=== PATIENT | female | born 1960 | race Caucasian/White ===

== ENCOUNTER 2016-10-06 11:18 | Emergency (ER) | payer MEDICARE ==
[2015-10-25 18:32] VITALS: BMI 32.3
[~2016-10-06 11:18] MED LIST: CHLORPROMAZINE200 MG PO; DOXYCYCLINE HY100 M2 PO; HYDROCODON-ACE1 EAC7 PO; K-TAB10 MEQ PO; KLONOPIN1 MG PO; LEVAQUIN500 MG PO; LYRICA150 MG; LYRICA150 MG PO; MEDROL DOSE PACK4 MG PO; NEXIUM40 MG PO; PHENERGAN25 M1 PO; REMERON45 MG PO; SEROQUEL300 MG PO; SYNTHROID50 MCG PO; TRILEPTAL300 MG PO
[2016-10-06 12:16] LABS: BASOPHILS 0.5 % (0-2); EOSINOPHILS 2.5 % (0-7); HEMATOCRIT 42.8 % (36.0-48.0); HEMOGLOBIN 14.1 g/dL (12-16); LYMPHOCYTES 31.7 % (15-50); MCH 33.1 pg (26.0-34.0); MCHC 32.9 g/dL (31.0-37.0); MCV 100.5 fL (80.0-100.0); MEAN PLATELET VOLUME 11.7 fL (7.4-10.4); MONOCYTES 8.5 % (2-11); NEUTROPHILS 56.8 % (40-80); PLATELET COUNT 155 10x3/uL (130-400); RBC 4.26 10x6/uL (4.00-5.40); RDW 13.3 % (11.5-14.5); WBC 6.4 10x3/uL (4.8-10.8)
[2016-10-06 12:34] LABS: ALBUMIN 3.2 g/dL (3.4-5.0); ANION GAP 11.7 mmol/L (8-16); BILIRUBIN - TOTAL 0.3 mg/dL (0.2-1.3); CALCIUM 8.8 mg/dL (8.5-10.1); CARBON DIOXIDE 26.4 mmol/L (21.0-32.0); CREATININE - SERUM 1.1 mg/dL (0.6-1.3); POTASSIUM - SERUM 4.1 mmol/L (3.5-5.1); PROTEIN - SERUM 7.6 g/dL (6.4-8.2)
[2016-10-06 13:29] LABS: APPEARANCE HAZY (CLEAR); BACTERIA MODERATE /hpf (NONE SEEN); BILIRUBIN NEGATIVE (NEGATIVE); COLOR YELLOW (YELLOW); GLUCOSE NEGATIVE (NEGATIVE); KETONE NEGATIVE (NEGATIVE); LEUKOCYTE ESTERASE 2+ (NEGATIVE); MUCUS <1+ /lpf (NONE SEEN); NITRITE NEGATIVE (NEGATIVE); PROTEIN NEGATIVE (NEGATIVE); RED CELLS - URINE OCC /hpf (0-5); SPECIFIC GRAVITY 1.005 (1.005-1.020); UROBILINOGEN NORMAL (NORMAL); WHITE CELLS - URINE 25-50 /hpf (0-5)
== END 2016-10-06 14:10 | disposition home or self-care (01) ==
LOC: D.ER 11:18
PROVIDERS: Emergency Medicine
DX: R60.9 Edema, unspecified (principal); L03.90 Cellulitis, unspecified; F17.200 Nicotine dependence, unspecified, uncomplicated; J44.9 Chronic obstructive pulmonary disease, unspecified; B19.10 Unspecified viral hepatitis B without hepatic coma; B19.20 Unspecified viral hepatitis C without hepatic coma

== ENCOUNTER → 2018-06-30 06:43 | Day surgery (SDC) | payer MEDICARE ==
[~2018-06-30] VITALS: Ht 167.6 cm; Wt 85.9 kg
--- NOTE | ~2018-06-30 | OP ---
PATIENT NAME: AILYN GUNN MEDICAL RECORD: [id number] :60 LOCATION:[facility] ADMISSION DATE: SURGEON: CAROLANN GARZA DO DATE OF OPERATION: 06/30/2018 PROCEDURE: Colonoscopy with polypectomy and biopsies. INDICATIONS FOR PROCEDURE: Chronic constipation, hematochezia, generalized abdominal pain. SCOPE: [employer] video pediatric colonoscope. MEDICATIONS: Propofol 820 mg IV per anesthesia. WITHDRAWAL TIME: 30 minutes. ESTIMATED BLOOD LOSS: Minimal. COMPLICATIONS: None. FINDINGS: Informed consent was given. The patient was made comfortable with the above medication. After reaching an adequate level of sedation by slow IV push, the patient was placed on her left side. A digital rectal examination was performed and it was normal. The endoscope was then advanced under direct visualization through the rectum to the cecum, confirmed by the presence of the appendiceal orifice and ileocecal valve. The endoscope was slowly withdrawn, the mucosa was carefully examined. The prep quality was fair in 95% of the colon, but poor in approximately 5% with some solid stool that limited some visualization of mucosa. There were multiple small benign appearing polyps visualized on today's examination. They ranged in size from 3-5 mm in diameter. They were removed using hot forceps. One of these polyps were located in the ascending colon. Two were located in the transverse colon, two were located in the descending colon. Again, all these polyps were removed with hot forceps. In the distal ascending colon at 75 cm, there was a large mixed type polyp with concerning features for high-grade dysplasia or adenocarcinoma. The polyp itself was a large flat lesion, which measured approximately 4 cm x 2.5 cm. It was a very flat carpet-like polyp with a single focus of approximately 1 cm in diameter that was raised. The raised portion was very vascular and somewhat ulcerated and appeared consistent with malignancy. Separate biopsies were taken from the peripheral flat site of the lesion as well as the raised focus concerning for cancer. The area was marked with 3 separate injections of Netta ink for tattooing, both distally and proximally. The endoscope was withdrawn back into the rectum where retroflexion was performed. There were grade I internal hemorrhoids without bleeding. The endoscope was then withdrawn from the patient. The patient tolerated the procedure well and there were no complications. IMPRESSIONS: 1. Large mixed type polyp/concerning features for malignancy, located at 75 cm. Multiple biopsies taken and Netta ink tattooing performed. 2. Five separate benign-appearing sessile polyps, which were removed using hot forceps. 3. Grade I internal hemorrhoids without bleeding. PLAN AND RECOMMENDATIONS: OPERATIVE REPORT [id number] AILYN GUNN 1. Discharge home when recovery parameters are met. 2. Follow up biopsy specimen results. 3. High fiber diet. 4. Continue current medications. 5. Further interventions will be dependent on results of biopsies today. The patient will likely require a referral to surgery for consideration of resection versus further polypectomy and APC cauterization of large polypoid site at 75 cm. 6. Recall colonoscopies will be dependent on pathology and immediate plans based on those pathology results. TRANSINT:[id number] Voice Confirmation ID: [id number] DOCUMENT ID: [id number] CAROLANN GARZA DO CC: [id number] DICTATION DATE: 06/30/18 1040 INSPECTOR TUBES: 06/30/18 1133 [facility] [address] [place] [id number]
[~2018-06-30 06:43] MED LIST changes: +LINZESS145 MCG PO; +MYRBETRIQ25 MG PO; +NEURONTIN800 MG PO
[2018-06-30 07:22] LABS: HEMATOCRIT 46.8 % (36.0-48.0); HEMOGLOBIN 16.7 g/dL (12-16); MCH 34.2 pg (26.0-34.0); MCHC 35.7 g/dL (31.0-37.0); MCV 95.9 fL (80.0-100.0); MEAN PLATELET VOLUME 11.8 fL (7.4-10.4); RBC 4.88 10x6/uL (4.00-5.40); RDW 13.5 % (11.5-14.5); WBC 6.9 10x3/uL (4.8-10.8)
[2018-06-30 08:16] VITALS: Ht 167.6 cm; Wt 85.9 kg
== END | disposition home or self-care (01) ==
LOC: D.OPS 06:43
PROVIDERS: Anesthesiology; ATTEND Internal Medicine Gastroenterology
DX: C18.6 Malignant neoplasm of descending colon (principal); D12.2 Benign neoplasm of ascending colon; D12.4 Benign neoplasm of descending colon; D12.3 Benign neoplasm of transverse colon; K64.0 First degree hemorrhoids; Z01.812 Encounter for preprocedural laboratory examination

== ENCOUNTER 2018-07-05 11:45 | Day surgery (SDC) | payer MEDICARE ==
[~2018-07-05] VITALS: Ht 167.6 cm; Wt 76.8 kg
[~2018-07-05 11:45] MED LIST changes: -LINZESS145 MCG PO; -MYRBETRIQ25 MG PO
[2018-07-05 12:08] LABS: BASOPHILS 0.3 % (0-2); EOSINOPHILS 1.6 % (0-7); HEMATOCRIT 45.7 % (36.0-48.0); HEMOGLOBIN 15.9 g/dL (12-16); IMMATURE GRANULOCYTES 0.2 % (0-5); LYMPHOCYTES 34.6 % (15-50); MCH 34.3 pg (26.0-34.0); MCHC 34.8 g/dL (31.0-37.0); MCV 98.5 fL (80.0-100.0); MEAN PLATELET VOLUME 11.4 fL (7.4-10.4); MONOCYTES 8.7 % (2-11); NEUTROPHILS 54.6 % (40-80); PLATELET COUNT 112 10x3/uL (130-400); RBC 4.64 10x6/uL (4.00-5.40); RDW 13.3 % (11.5-14.5); WBC 6.2 10x3/uL (4.8-10.8)
[2018-07-05 12:27] LABS: ANION GAP 18.1 mmol/L (8-16); CALCIUM 8.7 mg/dL (8.5-10.1); CARBON DIOXIDE 18.6 mmol/L (21.0-32.0); CREATININE - SERUM 1.3 mg/dL (0.6-1.3); POTASSIUM - SERUM 3.7 mmol/L (3.5-5.1)
[2018-07-05 12:29] LABS: INR 1.18 (0.85-1.17); PROTIME 14.5 SECONDS (11.6-15.0)
[2018-07-05 13:22] VITALS: BP 133/61; Ht 167.6 cm; Wt 76.8 kg
[2018-07-05] MEDS ORDERED: LINZESS145 MCG PO (13:26)
[2018-07-05] MEDS ORDERED: MYRBETRIQ25 MG PO (13:26)
--- NOTE | 2018-07-05 15:45 | NUR ---
DC INSTRUCTIONS GIVEN TO PT. STATES UNDERSTANDING. DC'D IV CATH FULLY INTACT.
--- NOTE | 2018-07-05 16:11 | NUR ---
PT LEFT UNIT VIA WC AT 1603
--- NOTE | 2018-07-07 12:06 | OP ---
PATIENT NAME: AILYN GUNN MEDICAL RECORD: [id number] :60 [facility] DATE: SURGEON: CAROLANN GARZA DO DATE OF OPERATION: 07/05/2018 PROCEDURE: EGD with biopsies. INDICATION FOR PROCEDURE: Heartburn, nausea with vomiting, and generalized abdominal pain. SCOPE: [employer] video gastroscope. MEDICATIONS: Propofol 200 mg IV per anesthesia. ESTIMATED BLOOD LOSS: Minimal. COMPLICATIONS: None. FINDINGS: Informed consent was given. The patient was made comfortable with the above medication. After reaching an adequate level of sedation by slow IV push, the patient was placed on her left side. The endoscope was advanced under direct visualization through the mouth to the second portion of the duodenum with ease. The upper, middle, and lower thirds of the esophagus appeared normal. Two cold forceps biopsies were taken from the mid esophagus due to the patient's complaint of chest pain. At the GE junction, there was evidence of LA class C, reflux-induced esophagitis. Two cold forceps biopsies were taken at the Z line to submit for histopathology. The endoscope was advanced beyond the GE junction into the stomach and retroflexed to view the cardia and fundus. There was a small sliding hiatal hernia present with some associated erythema and inflammation related to the hernia. The entire stomach showed diffuse portal hypertensive gastropathy of mild severity. Random cold forceps biopsies were taken from the antrum, incisura, and body of the stomach to submit for histopathology and to rule out the presence of H. pylori. The endoscope was advanced beyond the pylorus into the duodenum, which appeared normal down to the second portion. The endoscope was then withdrawn from the patient. The patient tolerated the procedure well and there were no complications. IMPRESSION: 1. LA class C, reflux-induced esophagitis. 2. Small sliding hiatal hernia with some associated inflammation. 3. Diffuse portal hypertensive gastropathy and gastritis. PLAN AND RECOMMENDATIONS: 1. Discharge home when recovery parameters are met. 2. Follow up biopsy specimen results. 3. GERD diet and reflux precautions. 4. Lansoprazole 30 mg daily times 60 days. 5. Follow up in GI clinic in 3 weeks to discuss symptoms on medication. We are also working on improving constipation with Linzess 290 mcg daily. If we can improve the constipation, this may resolve abdominal pain and nausea as well. 6. Consider surgical repair of hiatal hernia if symptoms do not improve with antacid therapy and improvement in bowel habits. 7. Referral to Dr. Esqueda regarding the patient's recently diagnosed colon adenocarcinoma. 8. Can also consider a gastric emptying scan and further workup if symptoms OPERATIVE REPORT [id number] AILYN GUNN on trial of medications. TRANSINT:[id number] Voice Confirmation ID: [id number] DOCUMENT ID: [id number] CAROLANN GARZA DO at 1206 CC: [id number] DICTATION DATE: 07/05/18 1516 DRAG CAR RACER: 07/05/18 [address] [facility] 07/05/18 [facility] [address] [place] [address]
== END 2018-07-05 16:03 | disposition home or self-care (01) ==
LOC: D.OPS 11:45
PROVIDERS: Anesthesiology; ATTEND Internal Medicine Gastroenterology
DX: K21.0 Gastro-esophageal reflux disease with esophagitis (principal); K44.9 Diaphragmatic hernia without obstruction or gangrene; K76.6 Portal hypertension; K31.89 Other diseases of stomach and duodenum; K29.50 Unspecified chronic gastritis without bleeding; Z01.812 Encounter for preprocedural laboratory examination

== ENCOUNTER 2018-07-19 13:27 | Inpatient (IN) | payer MEDICARE ==
[~2018-07-19] VITALS: Ht 167.6 cm; Wt 84.5 kg
[~2018-07-19 13:27] MED LIST changes: +LINZESS145 MCG PO; +MYRBETRIQ25 MG PO
[2018-07-20] MEDS ORDERED: CELEXA20 MG PO (14:02)
[2018-07-22] VITALS (13 sets, daily range): BP systolic 88–123; BP diastolic 42–61; Ht 167.6 cm; Wt 84.5 kg
[2018-07-22 08:06] LABS: BASOPHILS 0.2 % (0-2); EOSINOPHILS 0.6 % (0-7); HEMATOCRIT 46.9 % (36.0-48.0); HEMOGLOBIN 16.6 g/dL (12-16); IMMATURE GRANULOCYTES 0.2 % (0-5); LYMPHOCYTES 33.2 % (15-50); MCH 34.2 pg (26.0-34.0); MCHC 35.4 g/dL (31.0-37.0); MCV 96.7 fL (80.0-100.0); MEAN PLATELET VOLUME 11.6 fL (7.4-10.4); MONOCYTES 5.1 % (2-11); NEUTROPHILS 60.7 % (40-80); RBC 4.85 10x6/uL (4.00-5.40); RDW 13.3 % (11.5-14.5); WBC 6.2 10x3/uL (4.8-10.8)
[2018-07-22 08:09] LABS: PLATELET COUNT 136 10x3/uL (130-400)
[2018-07-22 08:17] LABS: INR 1.07 (0.85-1.17); PROTIME 13.4 SECONDS (11.6-15.0)
[2018-07-22 08:18] LABS: APTT 44.8 SECONDS (22.8-39.4)
[2018-07-22 08:27] LABS: ALBUMIN 3.6 g/dL (3.4-5.0); BILIRUBIN - TOTAL 0.42 mg/dL (0.2-1.3); CALCIUM 8.4 mg/dL (8.5-10.1); CARBON DIOXIDE 23.5 mmol/L (21.0-32.0); CREATININE - SERUM 1.3 mg/dL (0.6-1.3); POTASSIUM - SERUM 3.5 mmol/L (3.5-5.1); PROTEIN - SERUM 8.3 g/dL (6.4-8.2)
--- NOTE | 2018-07-22 13:24 | NUR ---
CARE TRANSFERRED TO MARIA ELENA TATUM RN
--- NOTE | 2018-07-22 13:25 | NUR ---
CARE ASSUMED FROM CHRISTAL GRAF RN
--- NOTE | 2018-07-22 14:00 | NUR ---
PT TRANSPORTED TO ROOM VIA BED. PT IS RESTING WITH EYES CLOSED. RESPIRATIONS ARE EVEN AND UNLABORED. PT IS AROUSABLE TO VERBAL STIMULATION, BUT QUICKLY RETURNS TO RESTING STATE. FAMILY IS NOT AVAILABLE. WILL ATTEMPT TO COMPLETE ADMISSION HISTORY AND ASSESSMENT WHEN PT IS MORE ALERT. JULIAN DRAIN NOTED TO LOWER ABDOMEN WITH SANGUINOUS DRAINAGE NOTED. SANCHES CATHETER IS DRAINING FREELY WITH BLUE/GREEN URINE NOTED TO COLLECTION BAG. ABDOMINAL INCISIONS X 4 NOTED. DRESSINGS ARE C/D/I. PT WITH EPIDURAL INFUSING WITHOUT DIFFICULTY. CENTRAL LINE NOTED TO RIGHT NECK. BIOPATCH IS IN PLACE. DRESSING IS C/D/I. BED IS IN THE LOWEST POSITION. CALL LIGHT AND BEDSIDE TABLE ARE WITHIN REACH. BED ALARM IS ON AND WORKING. WILL CONT TO MONITOR.
[2018-07-22 14:36] LABS: BASOPHILS 0.1 % (0-2); EOSINOPHILS 0.1 % (0-7); HEMATOCRIT 42.1 % (36.0-48.0); HEMOGLOBIN 14.4 g/dL (12-16); IMMATURE GRANULOCYTES 0.3 % (0-5); LYMPHOCYTES 7.9 % (15-50); MCH 33.6 pg (26.0-34.0); MCHC 34.2 g/dL (31.0-37.0); MCV 98.1 fL (80.0-100.0); MEAN PLATELET VOLUME 11.2 fL (7.4-10.4); MONOCYTES 2.2 % (2-11); NEUTROPHILS 89.4 % (40-80); PLATELET COUNT 122 10x3/uL (130-400); RBC 4.29 10x6/uL (4.00-5.40); RDW 13.4 % (11.5-14.5)
[2018-07-22 14:40] LABS: WBC 10.7 10x3/uL (4.8-10.8)
[2018-07-22 14:49] LABS: INR 1.26 (0.85-1.17); PROTIME 15.2 SECONDS (11.6-15.0)
--- NOTE | 2018-07-22 14:49 | NUR ---
PT CONTINUES WITH SLEEPY STATE. UNABLE TO ANSWER QUESTIONS APPROPRIATELY AT THIS TIME. WILL ATTEMPT TO COMPLETE ADMISSION HISTORY AND ASSESSMENT AT A LATER TIME WHEN PT IS MORE ALERT.
[2018-07-22 15:19] LABS: ALBUMIN 2.8 g/dL (3.4-5.0); BILIRUBIN - TOTAL 0.28 mg/dL (0.2-1.3); CALCIUM 7.9 mg/dL (8.5-10.1); CREATININE - SERUM 1.3 mg/dL (0.6-1.3); PROTEIN - SERUM 6.6 g/dL (6.4-8.2)
--- NOTE | 2018-07-22 16:05 | NUR ---
PT HYPOTENSIVE AT THIS TIME. SEE VITALS FLOW SHEET. DR RUIZ PAGED. FLUID INFUSION INCREASED AND LOWER EXTREMITIES ELEVATED.
--- NOTE | 2018-07-22 16:07 | NUR ---
SPOKE WITH DR RUIZ REGARDING PT BLOOD PRESSURE. ORDERS RECD ARE 1 UNIT OF PLATELETS, I LITER BOLUS, 1 UNIT OF FFP AND CBC WITH PT, PTT AND INR. INSTRUCTIONS TO CALL WITH RESULTS OF CBC, PT, PTT AND INR. WILL PLACE ORDERS.
--- NOTE | 2018-07-22 17:15 | NUR ---
DR RUIZ NOTIFIED OF CBC, PT, INR, PTT RESULTS PER REQUEST. TELEPHONE ORDERS RECD ARE GIVE 1 GRAM IV ALBUMIN AND HOLD ON TRANSFUSING PLATELETS AND FFP. WILL PLACE ORDERS.
--- NOTE | 2018-07-22 19:42 | NUR ---
DR RUIZ AT BEDSIDE. INFORMED DR RUIZ OF PT CONCERN RELATED TO PSYCH MEDS. VERBAL ORDERS RECD TO RESTART PSYCH MEDS. WILL PLACE ORDERS.
--- NOTE | 2018-07-22 20:00 | NUR ---
ALERT RESTING IN BED C/O PAIN NOT BEING RELIEVED BY EPIDURAL, RESP UNLABORED O2 IN USE, DRESSING TO ABD C/D/I, EPIDURAL DRESSING C/D/I. CALL LIGHT IN REACH SEE SHIFT ASSESSMENT
[2018-07-23] VITALS: BP 101/53
[2018-07-23 04:00] VITALS: BP 115/71
[2018-07-23 06:34] LABS: BASOPHILS 0.2 % (0-2); EOSINOPHILS 0.2 % (0-7); HEMATOCRIT 37.6 % (36.0-48.0); HEMOGLOBIN 12.3 g/dL (12-16); IMMATURE GRANULOCYTES 0.2 % (0-5); LYMPHOCYTES 21.8 % (15-50); MCH 32.2 pg (26.0-34.0); MCHC 32.7 g/dL (31.0-37.0); MCV 98.4 fL (80.0-100.0); MEAN PLATELET VOLUME 11.8 fL (7.4-10.4); MONOCYTES 8.1 % (2-11); NEUTROPHILS 69.5 % (40-80); PLATELET COUNT 101 10x3/uL (130-400); RBC 3.82 10x6/uL (4.00-5.40); RDW 13.4 % (11.5-14.5); WBC 5.4 10x3/uL (4.8-10.8)
[2018-07-23 06:44] LABS: CALCIUM 7.6 mg/dL (8.5-10.1); CARBON DIOXIDE 25.7 mmol/L (21.0-32.0); CHLORIDE - SERUM 112 mmol/L (98-107); GLUCOSE 99 mg/dL (74-106); MAGNESIUM - SERUM 2.1 mg/dL (1.8-2.4); PHOSPHOROUS 2.9 mg/dL (2.5-4.9); POTASSIUM - SERUM 3.7 mmol/L (3.5-5.1); SODIUM 145 mmol/L (136-145); eGFR NON AFRICAN AMERICAN 78 mL/min (90-120)
[2018-07-23 06:45] LABS: CALC OSMOLALITY 286 mosm/kg (275-300); CREATININE - SERUM 0.8 mg/dL (0.6-1.3); UREA NITROGEN 8 mg/dL (7-18)
[2018-07-23 09:18] VITALS: BP 94/42
--- NOTE | 2018-07-23 09:22 | NUR ---
PT ALERT AND ORIENTED AND ABLER TO MOVE TOES. COMPLAINS OF ABD PAIN. ANESTHESIA HERE AND CHECKED PLACEMENT OF EPIDURAL AND INTACT. OXYCODNONE IR GIVEN FOR BREAKTHROUGH PAIN. ENCOUURAGED TO USE CALOL LIGHT FOR ASSSIT. ABD. DRESSING INTACT WITH BS HYPOACTIVE
--- NOTE | 2018-07-23 10:51 | NUR ---
STARTED INFUSION OF FFP 1 UNIT WITHOUT ANY S/S OF REACTION NOTED. STATES PAIN IS BEETERR WELL5/10.
[2018-07-23 13:03] VITALS: BP 97/54
--- NOTE | 2018-07-23 14:38 | MORECARE ---
CASE MANAGEMENT DISCHARGE SUMMARY PATIENT: AILYN GUNN NEENA UNIT: [id number] ADM DATE: 07/22/18 AGE: 58 : 60 SEX: F ROOM/BED: D.2234 AUTHOR: CHRISTOPHER DAVID PHYSICIAN: REFERRING PHYSICIAN: JOSE RUIZ MD DATE OF SERVICE: 07/23/18 Discharge Plan Patient Name: [facility]ILYN GUNN [facility] [facility] 1960 Planned Disposition: Home Anticipated Discharge Date: Discharge Date: Expected LOS: Initial Reviewer: [email or web address] Initial Review Date: 07/23/2018 Generated: 07/23/18 3:38 pm DCPIA - Discharge Planning Initial Assessment Updated by [email or web address]: Alvina Gallego on 07/23/18 2:38 pm * Is the patient Alert and Oriented? Yes * How many steps to enter\exit or inside your home? 14/0 * PCP Dr. Cristi Magaña * Pharmacy [place] * Preadmission Environment Home Alone * ADLs Partial Dependent * Partial ADLs (Assistance needed) Ambulation Bathing * Equipment Cane Other Walker * Other Equipment Motorized Wheelchair * List name and contact numbers for known caregivers / representatives who currently or will assist patient after discharge: Luz Cancino - caregiver - [phone] * Verbal permission to speak to the caregivers and representatives has been obtained from the patient. Yes * Community resources currently utilized Private Duty Care * Please name any agencies selected above. [facility] * Additional services required to return to the preadmission environment? No * Can the patient safely return to the preadmission environment? Yes * Has this patient been hospitalized within the prior 30 days at any hospital? No Patient Name: AILYN GUNN Page [id number] at 1438 All edits/amendments must be made on the electronic document DICTATION DATE: 07/23/181436 COMMERCIAL PRODUCER: DILIP 07/23/181436 RPT#: [id number] DC DATE: STATUS: ADM IN [address] [place] [address] END OF REPORT
--- NOTE | 2018-07-23 14:47 | MORECARE ---
CASE MANAGEMENT DISCHARGE SUMMARY PATIENT: AILYN GUNN NEENA UNIT: [id number] ADM DATE: 07/22/18 AGE: 58 : 60 SEX: F ROOM/BED: D.2234 AUTHOR: FRANKIE,DOC PHYSICIAN: REFERRING PHYSICIAN: JOSE RUIZ MD DATE OF SERVICE: 07/23/18 Discharge Plan Patient Name: AILYN GUNN Facility: [facility]:[place] : 1960 Planned Disposition: Home Anticipated Discharge Date: Discharge Date: Expected LOS: Initial Reviewer: [email or web address] Initial Review Date: 07/23/2018 Generated: 07/23/18 3:46 pm Comments DCP- Discharge Planning Updated by [email or web address]: Alvina Gallego on 07/23/18 1:[address] Patient Name: AILYN GUNN Admission Status: Elective Accout number: [id number] Admission Date: 07-22-2018 : 1960 Admission Diagnosis: Attending: JOSE RUIZ Current LOS: 1 Anticipated DC Date: Planned Disposition: Home Primary Insurance: MEDICARE A & B Discharge Planning Comments: CM met with patient to complete initial dc planning assessment. CM educated patient on the CM role and verbal consent given by patient to complete assessment. Patient lives at [facility] alone. She has all ages home care ([facility]) comes in 5 days a week Thursday through Thursday for 3-5 hours. At discharge patient plans to return and feels this is a safe discharge. She states Luz will take her home on discharge. CM discussed availability of home health, rehab services, and medical equipment. Patient denied known discharge needs at this time. CM will continue to follow and will assist as needed with dc plans/needs. Fire Hose Curer: Alvina Gallego DCPIA - Discharge Planning Initial Assessment Updated by [email or web address]: Alvina Gallego on 07/23/18 2:38 pm * Is the patient Alert and Oriented? Yes * How many steps to enter\exit or inside your home? 14/0 * PCP Dr. Cristi Magaña * Pharmacy [place] * Preadmission Environment Home Alone * ADLs Partial Dependent * Partial ADLs (Assistance needed) Ambulation Bathing * Equipment Cane Other Walker * Other Equipment Motorized Wheelchair * List name and contact numbers for known caregivers / representatives who currently or will assist patient after discharge: Luz Cancino - caregiver - [phone] * Verbal permission to speak to the caregivers and representatives has been obtained from the patient. Yes * Community resources currently utilized Private Duty Care * Please name any agencies selected above. [facility] * Additional services required to return to the preadmission environment? No * Can the patient safely return to the preadmission environment? Yes * Has this patient been hospitalized within the prior 30 days at any hospital? No Last DP export: 07/23/18 1:38 p Patient Name: AILYN GUNN Page [id number] at 1447 All edits/amendments must be made on the electronic document DICTATION DATE: 07/23/181445 DRUG ROOM OPERATOR: DILIP 07/23/181445 RPT#: [id number] DC DATE: STATUS: ADM IN [facility] [address] [place] [address] END OF REPORT
[2018-07-23 20:00] VITALS: BP 101/51
[2018-07-23 23:55] VITALS: BP 107/49
--- NOTE | 2018-07-24 00:20 | NUR ---
PT WOKE UP CONFUSED, PULLING AT LINES. EPIDURAL DRESSING ON BACK ROLLED UP AND EPIDURAL LINE EXPOSED BUT NOT PULLED OUT. PLACED TEGADERM OVER LINE AND CALLED JAVED SANCHEZ CRNA. JAVED SAID TO COVER WITH TERGADERM AND HE WOULD SEE PT TOMORROW.
[2018-07-24 04:00] VITALS: BP 108/55
[2018-07-24 05:21] LABS: ANION GAP 13.9 mmol/L (8-16); CALCIUM 7.5 mg/dL (8.5-10.1); CARBON DIOXIDE 23.6 mmol/L (21.0-32.0); CREATININE - SERUM 0.9 mg/dL (0.6-1.3); POTASSIUM - SERUM 3.5 mmol/L (3.5-5.1)
--- NOTE | 2018-07-24 05:36 | NUR ---
POTASSIUM 3.5 - INFUSING 20 MEQ KCL RIDER 1ST OF 2 PER ELECTROLYTE PROTOCOL.
--- NOTE | 2018-07-24 07:49 | NUR ---
SITTING UP RIGHT IN BED, O2 VIA NC AT 2.5, EVEN UNLABORED BREATHING, AAOX4, IV TO RIGHT SUB-CLAV, NS AT 125ML/HR, ON CONTINUOUS 02 MONITORING, SANCHES CATHETER PRESENT, CLEAR, YELLOW URINE, SCD'S, DENIES ANY CURRENT NEEDS OR DISCOMFORTS, BED LOWERED AND LOCKED, CALL LIGHT WITHIN REACH. CPOC
[2018-07-24 09:04] VITALS: BP 103/41
--- NOTE | 2018-07-24 09:35 | NUR ---
PAGED PIPE FITTER FIRE SPRINKLER SYSTEMS PRECIOUS BURT TO DISCUSS EPIDURAL. HAS NOT RETURNED PAGE. PUMP IS OFF, AND HER PAIN IS NOT BEING CONTROLLED, LAST NIGHT THE DRESSING HAD COME OFF ACCORDING TO REPORT.
[2018-07-24 14:14] VITALS: BP 100/52
[2018-07-24 14:32] VITALS: BP 100/38
[2018-07-24 17:53] VITALS: BP 131/64
[2018-07-24 20:00] VITALS: BP 131/64
--- NOTE | 2018-07-24 22:45 | NUR ---
PT CONTINUALLY PULLING AT LINES AND TUBING. TRYING TO CLIMB OUT OF BED. HAVE TO REORIENT AND CONTINUALLY TELL PT SHE HAS TO STAY IN BED, TO CALL FOR ASSISTANCE. PT PULLED SANCHES CATHETER APART AND PULLED IV POLE INTO BED WITH HER. NOTIFIED PHYSICIAN. D/C'D IV FLUID; D/C'D SANCHES CATHETER; D/C'D EPIDURAL - TURNED OFF PUMP. DISCONNECTED, CAPPED AND TAPED DOWN EPIDURAL LINE. JAVED SANCHEZ CRNA TO REMOVE EPIDURAL TOMORROW; TRANSFERRED PT TO ENCLOSURE BED; CHANGED PAIN MEDICATION FROM OXY IR 10 MG TO NORCO [address] RUIZ TELEPHONE ORDER.
[2018-07-25] VITALS: BP 115/52
[2018-07-25 04:00] VITALS: BP 120/61
--- NOTE | 2018-07-25 05:45 | NUR ---
PAIN MED GIVEN. BED BATH GIVEN BY ROMI LAGOS. LOWER ABDOMINAL DRESSING CHANGED TO BANDAID. NO OTHER NEEDS. ENCLOSURE BED TO MAINTAIN SAFETY. CALL LIGHT IN REACH.
[2018-07-25 06:13] LABS: ANION GAP 11.6 mmol/L (8-16); CALCIUM 8.1 mg/dL (8.5-10.1); CARBON DIOXIDE 24.9 mmol/L (21.0-32.0); CREATININE - SERUM 0.9 mg/dL (0.6-1.3); POTASSIUM - SERUM 3.5 mmol/L (3.5-5.1)
[2018-07-25 09:45] VITALS: BP 143/70
--- NOTE | 2018-07-25 09:45 | NUR ---
ENCLOSED BED REMOVED. FALL PRECAUTIONS IN PLACE. LENCHO ALARM ON AND IN OPERATION. NON-SLIP SOCKS. BED LOWERED AND LOCKED, CALL LIGHT WITHIN REACH. CPOC
[2018-07-25 13:46] VITALS: BP 120/76
--- NOTE | 2018-07-25 15:45 | NUR ---
I have reviewed this patient and I concur with the Shift Assessment completed by the Licensed Practical Nurse today this shift.
[2018-07-25 20:00] VITALS: BP 106/58
--- NOTE | 2018-07-25 21:36 | NUR ---
PT ALERT & ORIENTED. PT AMBULATES TO TOILET INDEPENDENTLY. GAVE SCHEDULED MEDS. PT C/O PAIN 12/11. GAVE NORCO-5 PO. COMPLETE ASSESSMENT PER FLOW-SHEET. NO OTHER NEEDS. WILL CONTINUE TO MONITOR.
[2018-07-26 04:00] VITALS: BP 101/57
[2018-07-26 05:33] LABS: ANION GAP 14.3 mmol/L (8-16); CALCIUM 8.1 mg/dL (8.5-10.1); CARBON DIOXIDE 25.7 mmol/L (21.0-32.0); CREATININE - SERUM 0.9 mg/dL (0.6-1.3)
--- NOTE | 2018-07-26 08:12 | NUR ---
AWAKE AND ALERT. ORIENTED TO SELF AND PLACE ONLY. ATTEMPTS TO REORIENT WITHOUT SUCCESS. LUNGS ARE CLEAR BILATERALLY, NO COUGH NOTED. UP TO BR WITH ONE PERSON ASSIST. VOIDED WITHOUT DIFFICULTY. REPOSITIONED IN BED FOR COMFORT. SL TO RIGHT AC IS PATENT WITHOUT REDNESS AT INSERTION SITE. 4 SMALL INSERTION SITES TO ABDOMEN CLEAN AND DRY. DENIES NEEDS.
[2018-07-26 08:55] VITALS: BP 107/54
--- NOTE | 2018-07-26 10:30 | NUR ---
REQUESTED AND GIVEN ONE HYDROCODONE PO FOR C/O ABDOMINAL PAIN LEVEL 7. WILL MONITOR. VISITOR AT BEDSIDE. SHE ASKED WHY PATIENT WAS CONFUSED, STATED SHE IS N'T LIKE THIS AT HOME. WILL MONITOR.
[2018-07-26 13:00] VITALS: BP 119/50
--- NOTE | 2018-07-26 13:52 | NUR ---
PATIENT FOUND RESTING QUIETLY IN BED WITH CENTRAL LINE COMPLETELY OUT. ONE SUTURE IN PLACE D/C PER STAFF. STATED SHE GOT UP BY HERSELF AND IT GOT PULLED. BED ALARM IS ON AND SIDE RAILS UP X2. WILL MONITOR.
--- NOTE | 2018-07-26 14:26 | NUR ---
NUTRITION F/U CHART REVIEWED, PT VISIT. TOLERATING CLEAR LIQUID DIET, NOW ADVANCED TO REG. WILL PROVIDE DIET, HONOR FOOD PREFERENCES. RD FOLLOWING
--- NOTE | 2018-07-26 14:45 | NUR ---
IV SITED TO RIGHT WRIST AFTER 2 ATTEMPTS WITH 22 G. TOLERATED WITHOUT C/O.
--- NOTE | 2018-07-26 17:00 | NUR ---
FOUND SITTING UP ON SIDE OF BED WITH LENCHO ALARM GOING OFF WITH IV PULLED OUT. BLEEDING STOPPED PER STAFF. SKIN CARE PER STAFF, LINENS CHANGED.
--- NOTE | 2018-07-26 18:35 | NUR ---
ATE A FEW BITES OF SUPPER. UP TO BR WITH ONE PERSON ASSIST. VOIDED WITHOUT DIFFICULTY. NO CHANGES NOTED. DENIES NEEDS.
[2018-07-26 20:00] VITALS: BP 155/72
--- NOTE | 2018-07-26 20:00 | NUR ---
CONFUSED CLIMBING OUT OF BED, SIDE RAILS UP X 3 LENCHO MAT AND BED ALARM ON, ASSISTED UP TO BATHROOM, GAIT UNSTEADY USEING WALKER, DISORIENTIATED ON RETURN TO BED, CALL LIGHT IN REACH, WILL MONITOR
--- NOTE | 2018-07-27 03:27 | NUR ---
AWAKE AND CONFUSED KEEPS GETTIGN UP OUT OF BED, SIDE RAILS UP X 3, LENCHO MAT AND BED ALARM IN USE, UNABLE TO REORIENTIATE, HAS CALL LIGHT IN REACH
[2018-07-27 04:00] VITALS: BP 128/78
[2018-07-27 06:52] LABS: ANION GAP 14.4 mmol/L (8-16); CALCIUM 8.5 mg/dL (8.5-10.1); CARBON DIOXIDE 24.7 mmol/L (21.0-32.0); CREATININE - SERUM 1.1 mg/dL (0.6-1.3); POTASSIUM - SERUM 3.1 mmol/L (3.5-5.1)
--- NOTE | 2018-07-27 07:44 | NUR ---
AWAKE AND ALERT. ORIENTED X3. REQUESTED AND GIVEN ONE HYDROCODONE PO FOR C/O ABDOMINAL PAIN LEVEL 7. WILL MONITOR. LUNGS ARE CLEAR BIALTERALLY, NO COUGH NOTED. SKIN IS INTACT WITHOUT REDNESS EXCEPT 4 SMALL SITES TO ABDOMEN WHICH HAVE DRY INTACT DRESSINGS IN PLACE. NO IV AT THIS TIME. DENIES NEEDS.
[2018-07-27 08:52] VITALS: BP 123/57
--- NOTE | 2018-07-27 10:00 | NUR ---
UP TO SHOWER WITH STUDENTS ASSISTANCE. DENIES NEEDS.
--- NOTE | 2018-07-27 12:00 | NUR ---
RESTING QUIETLY IN BED. DENIES NEEDS.
[2018-07-27] MEDS ORDERED: HYDROCODON-ACE1 EAC7 PO (12:02)
[2018-07-27 13:49] VITALS: BP 124/61
[2018-07-27 16:39] VITALS: BP 116/61
--- NOTE | 2018-07-27 18:45 | NUR ---
ANXIOUS TO GO HOME TONIGHT. LEFT MESSAGE FOR RANJITH ON PHONE. WILL AWAIT SOMEONE TO ARRIVE TO D/C HOME.
--- NOTE | 2018-07-27 19:02 | NUR ---
DISCHARGED TO HOME WITH NEIGHBOR, [place], AMBULATORY. DISCHARGE INSTRUCTIONS GIVEN BOTH VERBALLY AND WRITTEN. ALL QUESTIONS ANSWERED. PATIENT VERBALIZED UNDERSTANDING OF SAME. NEEDED PRESCRIPTIONS GIVEN TO PATIENT. ALL BELONGINGS WITH PATIENT.
--- NOTE | 2018-07-29 10:22 | MORECARE ---
CASE MANAGEMENT DISCHARGE SUMMARY PATIENT: AILYN GUNN NEENA UNIT: [id number] ADM DATE: 07/22/18 AGE: 58 : 60 SEX: F ROOM/BED: D.2234 AUTHOR: FRANKIE,DOC PHYSICIAN: REFERRING PHYSICIAN: JOSE RUIZ MD DATE OF SERVICE: 07/29/18 Discharge Plan Patient Name: AILYN GUNN Facility: [facility]:[place] : 1960 Planned Disposition: Home Anticipated Discharge Date: Discharge Date: 07/27/2018 Expected LOS: 0 Initial Reviewer: [email or web address] Initial Review Date: 07/23/2018 Generated: 07/29/18 11:22 am Comments DCP- Discharge Planning Updated by [email or web address]: Alvina Gallego on 07/23/18 1:[address] Patient Name: AILYN GUNN Admission Status: Elective Accout number: [id number] Admission Date: 07-22-2018 : 1960 Admission Diagnosis: Attending: JOSE RUIZ Current LOS: 1 Anticipated DC Date: Planned Disposition: Home Primary Insurance: MEDICARE A & B Discharge Planning Comments: CM met with patient to complete initial dc planning assessment. CM educated patient on the CM role and verbal consent given by patient to complete assessment. Patient lives at [facility] alone. She has all ages home care ([facility]) comes in 5 days a week Thursday through Thursday for 3-5 hours. At discharge patient plans to return and feels this is a safe discharge. She states Luz will take her home on discharge. CM discussed availability of home health, rehab services, and medical equipment. Patient denied known discharge needs at this time. CM will continue to follow and will assist as needed with dc plans/needs. Mechanics Handyman: Alvina Gallego DCPIA - Discharge Planning Initial Assessment Updated by [email or web address]: Alvina Gallego on 07/23/18 2:38 pm * Is the patient Alert and Oriented? Yes * How many steps to enter\exit or inside your home? 14/0 * PCP Dr. Cristi Magaña * Pharmacy [place] * Preadmission Environment Home Alone * ADLs Partial Dependent * Partial ADLs (Assistance needed) Ambulation Bathing * Equipment Cane Other Walker * Other Equipment Motorized Wheelchair * List name and contact numbers for known caregivers / representatives who currently or will assist patient after discharge: Luz Cancino - caregiver - [phone] * Verbal permission to speak to the caregivers and representatives has been obtained from the patient. Yes * Community resources currently utilized Private Duty Care * Please name any agencies selected above. All Ages * Additional services required to return to the preadmission environment? No * Can the patient safely return to the preadmission environment? Yes * Has this patient been hospitalized within the prior 30 days at any hospital? No Last DP export: 07/23/18 1:46 p Patient Name: AILYN GUNN Page [id number] at 1022 All edits/amendments must be made on the electronic document DICTATION DATE: 07/29/18 1022 CREDIT ANALYST: DILIP 07/29/18 1022 RPT#: [id number] DC DATE:07/27/18 STATUS: DIS IN [facility] [address] [place] [address] END OF REPORT
== END 2018-07-27 19:08 | disposition home or self-care (01) | DRG 330 ==
LOC: D.SDCHOLD 07-22 07:18 → D.MS 07-22 13:49
PROVIDERS: Anesthesiology; ADMIT Surgery; ATTEND Surgery
PROC: 0DTF0ZZ Resection of Right Large Intestine, Open Approach (ICD-10-PCS; principal; 2018-07-22 09:00)
DX: C18.9 Malignant neoplasm of colon, unspecified (principal); R18.8 Other ascites; J44.9 Chronic obstructive pulmonary disease, unspecified; B19.20 Unspecified viral hepatitis C without hepatic coma; K72.90 Hepatic failure, unspecified without coma; B18.2 Chronic viral hepatitis C

== ENCOUNTER → 2018-08-12 13:20 | Outpatient (CLI) | payer MEDICARE ==
[~2018-08-12 13:20] MED LIST changes: +CELEXA20 MG PO; +NAPROSYN500 MG PO
[2018-08-12 15:53] LABS: BASOPHILS 0.2 % (0-2); EOSINOPHILS 3.3 % (0-7); HEMATOCRIT 39.4 % (36.0-48.0); HEMOGLOBIN 13.1 g/dL (12-16); IMMATURE GRANULOCYTES 0.4 % (0-5); LYMPHOCYTES 27.2 % (15-50); MCH 32.3 pg (26.0-34.0); MCHC 33.2 g/dL (31.0-37.0); MEAN PLATELET VOLUME 10.9 fL (7.4-10.4); MONOCYTES 8.5 % (2-11); NEUTROPHILS 60.4 % (40-80); RBC 4.06 10x6/uL (4.00-5.40); WBC 5.4 10x3/uL (4.8-10.8)
[2018-08-12 15:54] LABS: PLATELET COUNT 153 10x3/uL (130-400)
[2018-08-12 16:19] LABS: ALBUMIN 1.8 g/dL (3.4-5.0); BILIRUBIN - TOTAL 0.34 mg/dL (0.2-1.3); CARBON DIOXIDE 22.4 mmol/L (21.0-32.0); MAGNESIUM - SERUM 1.9 mg/dL (1.8-2.4); PHOSPHOROUS 3.3 mg/dL (2.5-4.9); PROTEIN - SERUM 2.9 g/dL (6.4-8.2)
[2018-08-12 16:31] LABS: ANION GAP 15.6 mmol/L (8-16); CALCIUM 8.4 mg/dL (8.5-10.1); CREATININE - SERUM 0.9 mg/dL (0.6-1.3)
== END | disposition home or self-care (01) ==
LOC: D.CT 12:00
PROVIDERS: ATTEND Surgery
DX: R10.9 Unspecified abdominal pain (principal); R19.7 Diarrhea, unspecified

== ENCOUNTER 2018-12-13 09:39 | Emergency (ER) | payer MEDICARE ==
[~2018-12-13] VITALS: Ht 167.6 cm; Wt 83.6 kg
[~2018-12-13 09:39] MED LIST changes: -NAPROSYN500 MG PO
[2018-12-13 09:45] VITALS: Ht 167.6 cm; Wt 83.6 kg
[2018-12-13] MEDS ORDERED: NAPROSYN500 MG PO (10:50)
[2018-12-13] MEDS ORDERED: HYDROCODON-ACE1 EAC7 PO (10:50)
[2018-12-13 11:16] VITALS: BP 126/58
== END 2018-12-13 11:01 | disposition home or self-care (01) ==
LOC: D.ER 09:39
DX: S20.219A Contusion of unspecified front wall of thorax, initial encounter (principal); W18.09XA Striking against other object with subsequent fall, initial encounter; Y93.89 Activity, other specified; Y92.89 Other specified places as the place of occurrence of the external cause

== ENCOUNTER 2019-06-03 19:05 | Emergency (ER) | payer MEDICARE ==
[~2019-06-03] VITALS: Ht 167.6 cm; Wt 85.5 kg
[~2019-06-03 19:05] MED LIST changes: +NAPROSYN500 MG PO
[2019-06-03 19:29] VITALS: Ht 167.6 cm; Wt 85.5 kg
[2019-06-03] MEDS ORDERED: HYDROCODON-ACE1 EA10 PO (20:25)
[2019-06-03 21:11] VITALS: BP 125/78
== END 2019-06-03 21:23 | disposition home or self-care (01) ==
LOC: D.ER 19:05
DX: S42.032A Displaced fracture of lateral end of left clavicle, initial encounter for closed fracture (principal); W08.XXXA Fall from other furniture, initial encounter; J44.9 Chronic obstructive pulmonary disease, unspecified; F32.9 Major depressive disorder, single episode, unspecified; K21.9 Gastro-esophageal reflux disease without esophagitis; Z85.030 Personal history of malignant carcinoid tumor of large intestine; Z72.0 Tobacco use